=== PATIENT | female | born 1990 | race Caucasian/White ===

== ENCOUNTER 2023-10-18 07:30 | Inpatient (IN) | payer OTHER ==
[2023-10-18] MEDS: ELECTROLYTE-148 SOLN 1,000 ML IV SCH (08:30)
[2023-10-18 08:36] VITALS: BMI 31.3
[2023-10-18] MEDS ORDERED: AMPICILLIN SODIUM 2 GM VIAL ONE (08:45)
[2023-10-18] MEDS: AMPICILLIN - 2 GM in SODIUM CHLORIDE 100 ML IVPB ONE (09:00)
[2023-10-18 09:12] LABS: BASO % 0.6 % (0-2.0); EOS % 1.9 % (0-4.5); HEMATOCRIT 37.1 % (32.4-45.2); HEMOGLOBIN 12.1 GM/dL (10.7-15.3); LYMPH % 10.8 % (8-40); MCH 28.6 pg (25.7-33.7); MCHC 32.6 g/dl (32.0-36.0); MEAN CELL VOLUME 87.8 fl (80-96); MEAN PLT VOLUME 9.4 fl (7.5-11.1); MONO % 5.1 % (3.8-10.2); NEUT % 81.6 % (42.8-82.8); PLATELET COUNT 178 10^3/uL (134-434); RBC 4.23 M/mm3 (3.60-5.2); WHITE BLOOD COUNT 11.5 K/mm3 (4.0-10.0)
[2023-10-18 09:18] LABS: INR 0.93 (0.83-1.09); PROTHROMBIN TIME (PATIENT) 10.7 SEC (9.7-13.0)
[2023-10-18 09:21] LABS: ACTIVATED PTT 25.9 SECONDS (25.2-36.5)
[2023-10-18 09:39] LABS: POTASSIUM 4.2 mmol/L (3.5-5.1)
[2023-10-18] MEDS: OXYTOCIN 30 UNITS in 0.9% NS 30 UNIT/500 ML INFUS.BAG IVPB SCH (09:40)
[2023-10-18 09:41] LABS: BLOOD UREA NITROGEN 6.7 mg/dL (7-18)
[2023-10-18 09:44] LABS: CREATININE 0.6 mg/dL (0.55-1.3)
[2023-10-18] MEDS ORDERED: FENTANYL/BUPIVACAINE/NS/PF - PCEA - 50 ML DISP.SYRIN EP ONE ×2 (10:18→13:24)
[2023-10-18] MEDS ORDERED: BUPIVACAINE HCL/PF 0.25% (2.5MG/ML) 10 ML VIAL ONE (10:34)
[2023-10-18] MEDS ORDERED: FENTANYL CITRATE/PF 50 MCG/ML VIAL ONE (10:34)
[2023-10-18] MEDS: FENTANYL/BUPIVACAINE/NS/PF - PCEA - 50 ML DISP.SYRIN EP SCH (10:50)
[2023-10-18] MEDS ORDERED: NALOXONE HCL 0.4 MG/ML VIAL IVPUSH PRN (11:00)
[2023-10-18 11:27] LABS: SYPHILIS W/ RPR CONF NON-REACTIVE (NONREACTIVE)
[2023-10-18 12:00] LABS: HIV INTERPRETATION NEGATIVE (NEGATIVE)
[2023-10-18] MEDS: AMPICILLIN - 1 GM in SODIUM CHLORIDE 100 ML IVPB SCH (13:00)
[2023-10-18] MEDS ORDERED: OXYTOCIN 20 UNITS in 0.9% NS 20 UNIT/1,000 ML INFUS.BAG IV ONE (14:59)
[2023-10-18] MEDS ORDERED: LIDOCAINE HCL 1% PRESERVATIVE FREE - 30ML VIAL ONE (14:59)
[2023-10-18] MEDS: OXYTOCIN 20 UNITS in 0.9% NS 20 UNIT/1,000 ML INFUS.BAG IV SCH (15:35)
[2023-10-18] MEDS ORDERED: WITCH HAZEL 50% (TUCKS) 40 PAD/JAR PAD TP PRN (15:44)
[2023-10-18] MEDS ORDERED: BISACODYL 10 MG SUPP.RECT RC PRN (15:44)
[2023-10-18] MEDS ORDERED: BENZOCAINE 20% 57 GM BOTTLE TP PRN (15:44)
[2023-10-18] MEDS ORDERED: METHYLERGONOVINE MALEATE 0.2 MG/1 ML AMP IM PRN (15:44)
[2023-10-18] MEDS ORDERED: oxyCODONE HCL 5 MG TABLET PO PRN (15:44)
[2023-10-18] MEDS ORDERED: BENZOCAINE 28 GM HEMORRHOIDAL OINTMENT TP PRN (15:44)
[2023-10-18] MEDS ORDERED: ACETAMINOPHEN INJECTION 100 ML IVPB ONE (15:53)
[2023-10-18] MEDS: ACETAMINOPHEN 1000 MG/100 ML BAG IVPB ONE (15:55)
[2023-10-18] MEDS: IBUPROFEN 600 MG TABLET (FP) PO PRN (19:33)
[2023-10-19 07:23] LABS: HEMOGLOBIN 11.4 GM/dL (10.7-15.3); MCH 29.3 pg (25.7-33.7); MCHC 33.5 g/dl (32.0-36.0); MEAN CELL VOLUME 87.3 fl (80-96); MEAN PLT VOLUME 9.6 fl (7.5-11.1); PLATELET COUNT 155 10^3/uL (134-434); RBC 3.89 M/mm3 (3.60-5.2); RDW 16.2 % (11.6-15.6)
[2023-10-19 09:05] LABS: ANISOCYTOSIS 0; MACROCYTOSIS 0
[2023-10-19] MEDS: FERROUS SO4 325 MG TABLET (FP) PO SCH (09:20)
[2023-10-19] MEDS: PRENATAL VITAMINS W/ FOLIC ACID TABLET (FP) PO SCH (09:20)
[2023-10-19] MEDS: ACETAMINOPHEN 325 MG TABLET (FP) PO PRN (09:20)
[2023-10-19 14:25] LABS: POC NITRAZINE POS
[2023-10-19] MEDS ORDERED: SENNOSIDES/DOCUSATE COMBO (SENNA PLUS) TABLET (UD) PO PRN (22:00)
[2023-10-19 22:58] VITALS: RESP 18
[2023-10-20 08:58] VITALS: BP 102/63; PULSE 88; TEMP 98
== END 2023-10-20 13:55 | disposition home or self-care (01) | DRG 560 ==
LOC: JLDR 07:30 → J3W 17:45
PROVIDERS: ADMIT Obstetrics & Gynecology; ATTEND Obstetrics & Gynecology
PROC: 10E0XZZ Delivery of Products of Conception, External Approach (ICD-10-PCS; principal; 2023-10-18)
DX: O26.893 Other specified pregnancy related conditions, third trimester (principal); Z3A.39 39 weeks gestation of pregnancy; Z37.0 Single live birth
CPT/HCPCS: 36415; 59409; 80048; 83986-QW; 85025; 85610; 85730; 86780; 86803; 86850; 86900; 86901; 87389; J0131